=== PATIENT | male | born 1990 | race Caucasian/White ===

== ENCOUNTER 2021-02-25 00:43 | Emergency (ER) | payer MEDICAID ==
[~2021-02-25] VITALS: Ht 170.2 cm; Wt 72.7 kg
--- NOTE | 2021-02-25 00:52 | ED.ADGEN ---
General Adult HPI: HPI: Patient is a 30 year old male coming in for foreign object to right thigh. Patient states he was working with some metal 8 hours ago and felt like it was something his eye. Has had pain, redness and tearing since. Has not tried to flush his eyes or use any eyedrops. Last tetanus shot 3 months ago. Does not w ear contacts Review of Systems: Review of Systems: All other systems within normal limits except for as noted in the HPI Current Medications: Current Medications Medications (Trade) Dose Ordered Sig/Isabella Start Time Stop Time Status Last Admin Dose Admin Ciprofloxacin (Ciloxan Ophth) 1 drop 1X ONCE 02/25/21 02:00 02/25/21 02:01 DC 02/25/21 03:04 1 DROP Fluorescein Sodium (Ful-Jazz) 1 strip 1X ONCE 02/25/21 01:00 02/25/21 01:01 DC 02/25/21 01:03 1 STRIP Ketorolac Tromethamine (Acular) 1 drop 1X ONCE 02/25/21 02:00 02/25/21 02:01 DC 02/25/21 03:04 1 DROP Tetracaine HCl (Tetracaine) 1 drop 1X ONCE 02/25/21 01:00 02/25/21 01:01 DC 02/25/21 01:00 1 DROP Allergies: Allergies: Allergies Coded Allergies Type Severity Reaction Last Updated Verified No Known Drug Allergies 02/25/21 No Physical Exam: PE: Constitutional: Well developed, well nourished, no acute distress, non-toxic appearance. [] HENT: Normocephalic, atraumatic, bilateral external ears normal, nose normal. [] Eyes: PERRLA, extraocular was intact, injection of right conjunctiva, multiple foreign bodies noted over right cornea, 1 foreign body in left eye at 6:00 area of cornea over iris Neck: No rigidity, supple, no stridor. [] Cardiovascular: Regular rate and rhythm, brisk cap refill [] Lungs & Thorax: Non labored symmetric respirations, no tachypnea or respiratory distress [] Abdomen: Soft, nondistended. Skin: Warm, dry, no erythema, no rash. [] Back: Unremarkable Extremities: No deformities, range of motion grossly intact, no lower extremity edema [] Neurologic: Alert and oriented X 3, no focal deficits noted. [] Psychologic: Affect normal, judgement normal, mood normal. [] Current Patient Data: Vital Signs: Vital Signs Date Time Temp Pulse Resp B/P (MAP) Pulse Ox O2 Delivery O2 Flow Rate FiO2 02/25/21 02:15 80 20 93/54 (67) 96 Room Air 02/25/21 00:45 98.6 98.6 EKG: EKG: [] Heart Score: C/O Chest Pain: No Risk Factors: Risk Factors: DM, Current or recent (<one month) smoker, HTN, HLP, family history of CAD, obesity. Risk Scores: Score 0 - 3: 2.5% MACE over next 6 weeks - Discharge Home Score 4 - 6: 20.3% MACE over next 6 weeks - Admit for Clinical Observation Score 7 - 10: 72.7% MACE over next 6 weeks - Early Invasive Strategies Radiology/Procedures: Radiology/Procedures: Eyes numbed with tetracaine and 4 foreign bodies removed right cornea, 1 removed from left cornea, 2 visible foreign bodies embedded in thigh (likely secondary to patient repeatedly rubbing his eyes), unable to removed with cotton swab or flushing. [] Course & Med Decision Making: Course & Med Decision Making Patient given antibiotic drops and ketorolac. Given instructions to follow-up with orthopedics first thing in the morning Yola Disclaimer: Yola Disclaimer: This electronic medical record was generated, in whole or in part, using a voice recognition dictation system. Departure Departure Impression: Primary Impression: Corneal foreign body Disposition: 07 LEFT AWOL/ELOPED Condition: STABLE Additional Instructions: [facility] [address] [facility], [address] [address] Ciprofloxacin eyedrops: 2 drops in both eyes every 6 hours for 5 days Can use the ketorolac drops for pain as needed: 1 to 2 drops in each eye every 6-8 hours as needed KWAKU BROWNING MD Feb 25, 2021 00:52
[2021-02-25] MEDS ORDERED: TETRACAINE 0.5% OPHTH SOLUTION 4ML BOTTLE. OU ONE (01:00)
[2021-02-25] MEDS ORDERED: FLUORESCEIN OPHTH TEST STRIP. OU ONE (01:00)
[2021-02-25] MEDS ORDERED: CIPROFLOXACIN 0.3% OPHTH SOLUTION 5ML BOTTLE. OU ONE (02:00)
[2021-02-25] MEDS ORDERED: KETOROLAC TROMETHAMINE 0.5% OPHTH SOLUTION 5ML BOTTLE. OU ONE (02:00)
[2021-02-25 02:45] VITALS: BP 92/53
== END 2021-02-25 03:35 | disposition home or self-care (01) ==
LOC: ER 00:43
DX: T15.02XA Foreign body in cornea, left eye, initial encounter (principal); T15.01XA Foreign body in cornea, right eye, initial encounter; X58.XXXA Exposure to other specified factors, initial encounter; Y93.89 Activity, other specified; Y92.89 Other specified places as the place of occurrence of the external cause; Y99.8 Other external cause status
CPT/HCPCS: 65222; 99285